=== PATIENT | female | born 1970 | race American Indian/Alaskan Native ===

== ENCOUNTER 2020-09-16 15:45 | Outpatient (CLI) | payer OTHER ==
[2020-09-16 16:51] LABS: Basophils # (Auto) 0.1 K/mm3 (0.0-0.1); Basophils % (Auto) 0.6 % (0.0-1.8); Eosinophils # (Auto) 0.1 K/mm3 (0.0-0.4); Eosinophils % (Auto) 1.2 % (0.0-4.3); Hematocrit 29.8 % (30.3-42.9); Hemoglobin 9.2 gm/dl (10.1-14.3); Lymphocytes # (Auto) 3.5 K/mm3 (1.2-5.4); Lymphocytes % (Auto) 41.3 % (13.4-35.0); Mean Corpuscular HGB Conc 31 % (30-34); Monocytes % (Auto) 12.4 % (0.0-7.3); Platelet Count 299 K/mm3 (140-440)
[2020-09-16 16:58] LABS: Mean Corpuscular Volume 65 fl (79-97); Red Cell Distribution Width 21.7 % (13.2-15.2)
[2020-09-16 17:03] LABS: Alanine Aminotransferase 19 units/L (7-56); Albumin 3.6 g/dL (3.9-5); Blood Urea Nitrogen 7 mg/dL (7-17); Calcium 8.7 mg/dL (8.4-10.2); Chol/HDL Ratio 3.63 %; HDL Cholesterol 47 mg/dL (40-59); Hemolysis Index 37; LDL Cholesterol,Direct 104 mg/dL (50-130)
[2020-09-16 17:06] LABS: BUN/Creatinine Ratio 12
[2020-09-16 17:22] LABS: ABG Base Excess TNR mmol/L (-2.0-3.0); ABG HCO3 TNR mmol/L (20.0-26.0); ABG Methemoglobin TNR % (0.0-1.5); ABG Oxygen Saturation TNR % (95.0-99.0); ABG PCO2 TNR mm Hg; ABG PH TNR pH Units (7.350-7.450); ABG PO2 TNR mm Hg (80.0-90.0)
--- NOTE | 2020-09-16 17:42 | XRay Report ---
CHEST 2 VIEWS INDICATION / CLINICAL INFORMATION: ASTHMA. COMPARISON: None available. FINDINGS: SUPPORT DEVICES: None. HEART / MEDIASTINUM: The heart size is borderline. Pulmonary vasculature is normal. LUNGS / PLEURA: No significant pulmonary or pleural abnormality. No pneumothorax. ADDITIONAL FINDINGS: No significant additional findings. IMPRESSION: No acute findings. Signer Name: Otilio Sullivan MD Signed: 09/16/2020 5:38 PM Workstation Name: [id number]
== END 2020-09-16 15:46 | disposition home or self-care (01) ==
LOC: XRAY 15:45
PROVIDERS: ATTEND Internal Medicine
DX: J45.909 Unspecified asthma, uncomplicated (principal); I10 Essential (primary) hypertension; K21.9 Gastro-esophageal reflux disease without esophagitis; D64.9 Anemia, unspecified
CPT/HCPCS: 36415; 71046; 80053; 80061; 82785; 82803; 84436; 84443; 85025; 86003

== ENCOUNTER 2020-09-27 07:53 | Outpatient (CLI) | payer OTHER ==
[2020-09-27 12:07] LABS: ABG Base Excess 0.6 mmol/L (-2.0-3.0); ABG HCO3 24.6 mmol/L (20.0-26.0); ABG Methemoglobin 0.5 % (0.0-1.5); ABG PH 7.44 pH Units (7.350-7.450); ABG PO2 80.6 mm Hg (80.0-90.0)
--- NOTE | 2020-09-27 12:13 | Fluoroscopy Report ---
UPPER GI HISTORY: ANEMIA,UNSPECIFIED ASTHMA. Gastroesophageal reflux. Shortness of breath. TECHNIQUE: Single and double contrast barium technique utilized to evaluate the esophagus, stomach, and duodenal C-loop. FINDINGS: To begin the exam, swallowing was evaluated in the lateral position under direct fluorosco py. Swallowing was normal. No evidence for aspiration or penetration. The esophagus is normal calibe r and mucosal pattern throughout. No mucosal irregularity, mass, mass effect, or critical stenosis. There were no abnormal tertiary c ontractions as seen with dysmotility. A few episodes of mild gastroesophageal reflux to the distal es ophagus were witnessed during this exam. No hiatal hernia. IMPRESSION: Mild gastroesophageal reflux into the distal esophagus was witnessed. No obstruction or mucosal defect. Fluoroscopic time: 3.0 minutes Number of fluoroscopic images: 23 Signer Name: Juve Butler Jr, MD Signed: 09/27/2020 12:08 PM Workstation Name: [id number]
== END 2020-09-27 07:54 | disposition home or self-care (01) ==
LOC: FLUORO 07:53
PROVIDERS: ATTEND Internal Medicine
DX: K21.9 Gastro-esophageal reflux disease without esophagitis (principal); I10 Essential (primary) hypertension; D64.9 Anemia, unspecified; J45.909 Unspecified asthma, uncomplicated
CPT/HCPCS: 36415; 74246; 82550; 82728; 82803; 83615; 83880; 84484; 85379; 86140